=== PATIENT | female | born 1950 | race Caucasian/White ===

== ENCOUNTER → 2018-11-24 16:19 | Outpatient (CLI) | payer MEDICARE, SELFPAY ==
--- NOTE | 2018-11-24 16:30 | RAD_ITS ---
STUDY: X-RAY - LUMBAR SPINE REASON FOR EXAM: Female, 68 years old. Low back pain. Left leg sciatica. TECHNIQUE: 6 view(s) of the lumbar spine were obtained. COMPARISON: None FINDINGS: Normal lumbar lordosis. There is no substantial scoliosis. There is a normal alignment of the vertebrae. Normal vertebral bodies. Disc space narrowing L4-L5 and L5-S1. Small marginal osteophytes at multiple levels. Facet hypertrophy L5-S1. The soft tissue structures are unremarkable. Atherosclerotic calcification of distal abdominal aorta without evidence of aneurysmal dilatation. Surgical coils right hemipelvis. RAD/L/S Spine Min 4 Views IMPRESSION: Multilevel degenerative changes primarily involving the lower lumbar spine. Electronically Signed: Javad Solomon MD at 23:55 EDT , Service support ,
== END ==
PROVIDERS: Family Provider Internal Medicine; PCP Internal Medicine; Referring Provider Anesthesiology Pain Medicine; Visit Provider Anesthesiology Pain Medicine
DX: M54.5 Low back pain (principal); M79.605 Pain in left leg
CPT/HCPCS: 72110

== ENCOUNTER → 2019-04-01 12:09 | Outpatient (CLI) | payer MEDICARE, SELFPAY ==
--- NOTE | 2019-04-01 12:12 | US_ITS ---
STUDY: RENAL ULTRASOUND - COMPLETE REASON FOR EXAM: Female, 68 years old. REC UTI''S TECHNIQUE: Ultrasound evaluation of the kidneys was performed with real-time and static palacios-scale imaging. COMPARISON: None. FINDINGS: RIGHT KIDNEY: Normal location of the right kidney, which is normal in size. The right kidney measures 11.3 x 5.7 x 5.0 cm. There is a normal cortex of the right kidney. The renal cortex measures 1.4 cm. There is no right renal mass or cyst. There are no right renal calculi. There is no right hydronephrosis. DISTAL RIGHT URETER: There is non-visualization of the distal right ureter. There is no demonstrated right ureterovesical junction calculus. There is no demonstrated right ureteral jet. LEFT KIDNEY: Normal location of the left kidney, which is normal in size. The left kidney measures 10.6 x 5.1 x 5.8 cm. There is a normal cortex of the left kidney. The renal cortex measures 1.4 cm. There is no left renal mass or cyst. There are no left renal calculi. There is no left hydronephrosis. DISTAL LEFT URETER: There is non-visualization of the distal left ureter. There is no demonstrated left ureterovesical junction calculus. There is no demonstrated left ureteral jet. BLADDER: The distended urinary bladder has a volume of 490 ml. The empty urinary bladder has a volume of 92 ml. There is a normal wall thickness of the distended urinary bladder. Bladder wall thickness is 3.5 mm. There is no demonstrated mass within the urinary bladder. There are no demonstrated bladder calculi. US/Kidney and Bladder IMPRESSION: The kidneys appear normal. 92 mL of residual urine was noted in the bladder on the postvoiding images. Electronically Signed: Marcus Briones MD at 22:29 EST , Service support ,
== END ==
PROVIDERS: PCP Internal Medicine; Referring Provider Urology; Visit Provider Urology
DX: N39.0 Urinary tract infection, site not specified (principal)
CPT/HCPCS: 76770

== ENCOUNTER 2021-01-18 11:29 | Outpatient (CLI) | payer MEDICARE, SELFPAY ==
[2021-01-18] MEDS: 0.9% Saline Lock 10 ML Syringe IV (11:48)
[2021-01-18 11:55] VITALS: BP 124/69; PULSE 66; RESP 16; TEMP 36.8; O2SAT 97; BMI 39.8
[2021-01-18 12:41] VITALS: BP 108/72; PULSE 18; RESP 16; TEMP 36.8; O2SAT 92
[2021-01-18 13:45] VITALS: BP 125/63; PULSE 66; RESP 16; TEMP 36.6; O2SAT 96
== END 2021-01-18 13:46 | disposition home or self-care (01) ==
LOC: MS3OUT 11:29 → MS3 11:30
PROVIDERS: PCP Internal Medicine; Referring Provider Nurse Practitioner Adult Health; Visit Provider Nurse Practitioner Adult Health
DX: Z23 Encounter for immunization (principal); U07.1 COVID-19
CPT/HCPCS: J7050; M0245; Q0245; A4216

== ENCOUNTER → 2022-09-18 | Outpatient (CLI) | payer MEDICARE, SELFPAY ==
[2022-09-18 16:02] LABS: CRP 4.12 mg/L (0.0-3.0)
[2022-09-20 15:08] LABS: Endomysial Antibody IgA Negative (Negative); Immunoglobulin A 148 mg/dL (87-352); t-Transglutaminase IgA <2 U/mL (0-3)
== END | disposition home or self-care (01) ==
LOC: MTLAB 12:31
PROVIDERS: PCP Internal Medicine; Referring Provider Internal Medicine Gastroenterology; Visit Provider Internal Medicine Gastroenterology
DX: R19.7 Diarrhea, unspecified (principal)
CPT/HCPCS: 36415; 82784; 83516; 86140; 86255

== ENCOUNTER → 2022-09-23 | Outpatient (CLI) | payer MEDICARE, SELFPAY ==
[2022-09-26 00:07] LABS: Calprotectin, Stool 311 ug/g (0-120)
== END | disposition home or self-care (01) ==
LOC: LABSPEC 14:35
PROVIDERS: PCP Internal Medicine; Referring Provider Internal Medicine Gastroenterology; Visit Provider Internal Medicine Gastroenterology
DX: R19.7 Diarrhea, unspecified (principal)
CPT/HCPCS: 83993

== ENCOUNTER → 2023-01-18 | Outpatient (CLI) | payer MEDICARE, SELFPAY ==
--- NOTE | 2023-01-18 09:53 | CT_ITS ---
STUDY: LOW DOSE CT LUNG CANCER SCREENING REASON FOR EXAM: Female, 72 years old. SCREENING RADIATION DOSAGE (If Supplied By Facility): CTDIvol = ( 3.02 ) mGy, DLP = ( 95.91 ) mGycm TECHNIQUE: No contrast was administered. Low dose technique was utilized (average mAS-38 and kVp 120). 1.25 mm axial source images with a slice interval of 1.25-mm were reconstructed in lung windows. 2.5 mm axial source images with a slice interval of 2.5-mm were reconstructed in lung windows. 5.0 mm axial source images with a slice interval of 5.0-mm were reconstructed in soft tissue windows. COMPARISON: None. Emphysema: Moderate emphysema. 10 mm noncalcified subpleural nodule in the posterior medial right upper lobe of the lungs on image 49 and follow-up CT the chest in 3 months or PET/CT is recommended. Another 8 mm noncalcified nodule in the left upper lobe of the lungs on image 1:15. Endobronchial lesion: None Aorta: Some calcified plaque in the aortic arch but no aortic aneurysm. CORONARY ARTERIES: Coronary artery calcification is seen. Heart: No cardiomegaly. Pulmonary artery: Normal Mediastinal nodes: Normal Other chest and abdominal findings: Moderate hiatal hernia. CT/Low Dose CT Lung Screening IMPRESSION: Lung-RADS category 4A - Screening at 3 months with LDCT or evaluation with PET/CT may be used. IMPORTANT NOTES FOR USE: ACR Lung-RADS Version 1.1 Assessment Categories Release Date: 2018 Category: Coded 0-4 bases on nodule(s) with highest degree of suspicion. Negative screen is defined as categories 1 and 2; a positive screen is defined as categories 3 and 4. Category 3 and 4A nodules that are unchanged on interval CT should be coded as category 2, and individuals returned to screening in 12 months. Category 4X: Category 3 or 4 nodules with additional imaging findings that increase the suspicion of lung cancer, such as spiculation, GGN that doubles in size in 1 year, enlarged lymph notes, etc. Category Modifiers: S (significant finding unrelated to lung cancer) Electronically Signed: Chase Nuñez MD at 22:24 EST ,
== END | disposition home or self-care (01) ==
LOC: CT 09:45
PROVIDERS: PCP Internal Medicine; Referring Provider Internal Medicine; Visit Provider Internal Medicine
DX: Z12.2 Encounter for screening for malignant neoplasm of respiratory organs (principal); Z87.891 Personal history of nicotine dependence
CPT/HCPCS: 71271

== ENCOUNTER → 2023-02-11 | Outpatient (CLI) | payer MEDICARE, SELFPAY ==
--- NOTE | 2023-02-11 09:30 | PET_ITS ---
EXAMINATION: FDG PET/CT ? INDICATIONS: 80-year-old female with a history of pulmonary nodularity. ? COMPARISON EXAMINATION: CT report dated 01/18/2023. ? INDEX LESION SIZE SUV INTERPRETATION Right upper lung field, right upper lobe 9.5 mm 10.0 Fulfills quantitative criteria for viable neoplasm, histopathologic analysis is recommended ? TECHNIQUE: Following the intravenous administration of 14.48 mCi of F-18 deoxyglucose via the right hand, multiplanar image acquisitions of the head, neck, chest, abdomen and pelvis to the level of the midthigh, obtained at one-hour post radiopharmaceutical administration contemporaneously interpreted with the current CT of the chest, abdomen and pelvis dated 02/11/[address] report dated 01/18/2023 via coregistration reveal: ? SERUM GLUCOSE LEVEL:? 105 mg/dL? HEIGHT:?? 59 inches WEIGHT:?? 176 pounds ? FINDINGS: ? HEAD/NECK:? There is no evidence of abnormal increased glucose metabolism in the pharyngeal mucosal space, parapharyngeal space, oropharynx, bilateral-lateral and anterior neck, hypopharynx and distribution of the larynx. ? The visualized portion of the cerebral cortical-subcortical structures demonstrate symmetric and preserved glucose metabolism. ? CHEST:? Facilitated radiopharmaceutical concentration is defined in the right upper medial lung zone, right? upper lobe. The calculated standard uptake value is 10.0. The maximal axial diameter of the parenchymal density is 9.5 mm. Facilitated FDG concentration is noted in the descending thoracic aorta commensurate with activated leukocytes associated with atherosclerotic plaque formation. There is visualized radiopharmaceutical concentration noted in the left ventricular myocardium, consistent with the [place]. ? CT of the chest demonstrates the following anatomic characteristics: Emphysematous changes are defined in the upper-mid lung zones. A prominent hiatal hernia is defined. Right and left axillary soft tissue densities are ametabolic. Mediastinal soft tissue reveals no evidence of increased tracer uptake. Atherosclerotic calcification is defined in the thoracic aorta without evidence of dilatation, aneurysm formation. Coronary arterial calcification is observed. ? ABDOMEN/PELVIS:? Normal physiologic distribution of the radiopharmaceutical is identified in the hepatic (3.6) and splenic parenchyma, both renal units, urinary bladder, and visualized intestinal tract. ? CT of the abdomen and pelvis is remarkable for the following: Atherosclerotic calcification is defined in the abdominal aorta without evidence of dilatation, aneurysm formation. Abdominal-pelvic arterial calcification is observed. Apparent postprocedural change is noted in the rectum-rectal vault. Right and left inguinal soft tissue densities are ametabolic. The uterus appears surgically absent. ? SKELETAL:? Degenerative changes defined in the thoracic and lumbar spine demonstrate no evidence of increased glucose metabolism. There are no sclerotic, mixed sclerotic-lytic, or primarily lytic changes defined in the axial skeletal structures with evidence of increased FDG uptake. ? PET/PET/CT Tumor Base -Thigh Init IMPRESSION: 1. The increase in radiopharmaceutical concentration defined in the right mid posteromedial lung zone, right upper lobe, fulfills quantitative criteria for viable neoplasm. Histopathologic analysis is recommended. (Wei et al, Journal of Nuclear Medicine, 32:1, 1991). 2. No other quantitatively significant hypermetabolic abnormalities are noted. Electronic Signature Chase Nieves D.O. Accurate Quantification of SUVs for this report are calculated using the exclusive [employer]. ([place] Patent No. [id number] [phone] B2 [phone] [place] patent [phone]). Standardization and correction of the FDG SUV metric via [employer] technology allow for vendor non-specific objective quantitative examination comparison and optimization of the sensitivity and specificity of the FDG PET-CT examination. . [email or web address] Electronically Signed: Chase Nieves DO at 8:41 EST ,
== END | disposition home or self-care (01) ==
PROVIDERS: PCP Internal Medicine; Referring Provider Internal Medicine; Visit Provider Internal Medicine
DX: R91.8 Other nonspecific abnormal finding of lung field (principal)
CPT/HCPCS: 78815; A9552

== ENCOUNTER → 2024-05-07 | Outpatient (CLI) | payer MEDICARE, SELFPAY ==
--- NOTE | 2024-05-07 11:55 | RAD_ITS ---
PROCEDURE: LUMBAR SPINE 2 OR 3 VIEWS REASON FOR EXAM: Chronic low back pain. TECHNIQUE: 4 view(s) of the lumbar spine including oblique views COMPARISON: None. FINDINGS: Normal lumbar vertebral heights. No evidence of fracture. Advanced multilevel disc space narrowing with endplate osteophytes. Mild dextroscoliosis. Facet joint osteoarthritis. RAD/Lumbar Spine 2 or 3 Views IMPRESSION: ADVANCED DEGENERATIVE CHANGES OF THE LUMBAR SPINE. Reading Location: [facility]
== END | disposition home or self-care (01) ==
LOC: RAD 11:45
PROVIDERS: PCP Internal Medicine; Referring Provider Clinical Nurse Specialist Adult Health; Visit Provider Clinical Nurse Specialist Adult Health
DX: M51.369 Other intervertebral disc degeneration, lumbar region without mention of lumbar back pain or lower extremity pain (principal)
CPT/HCPCS: 72100

== ENCOUNTER → 2024-12-30 | Outpatient (CLI) | payer MEDICARE, SELFPAY ==
--- NOTE | 2024-12-30 13:09 | CT_ITS ---
PROCEDURE: CT/Sinus/Facial Bone
== END | disposition home or self-care (01) ==
PROVIDERS: PCP Internal Medicine; Referring Provider Otolaryngology; Visit Provider Otolaryngology
DX: J32.9 Chronic sinusitis, unspecified (principal)
CPT/HCPCS: 70486